=== PATIENT | female | born 1990 | race African-American/Black ===

== ENCOUNTER 2019-07-05 15:26 | Emergency (ER) | payer SELFPAY ==
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
--- NOTE | 2019-07-06 11:31 | CR ---
Right forearm: 2 views of the right forearm were obtained. Comparison: No prior forearm study is available. No fracture, dislocation or other bony abnormality is appreciated. Impression: 1. No abnormality is appreciated on 2 view right forearm study. Diagnostic code #1 This report was dictated in MDT
== END 2019-07-05 17:08 | disposition home or self-care (01) ==
LOC: JD.ED 15:26
DX: S63.501A Unspecified sprain of right wrist, initial encounter (principal); S10.93XA Contusion of unspecified part of neck, initial encounter; S50.11XA Contusion of right forearm, initial encounter; Y04.8XXA Assault by other bodily force, initial encounter
CPT/HCPCS: 73090-26-RT; 73090-RT; 99283; 99283-25